=== PATIENT | female | born 1995 | race Caucasian/White ===

== ENCOUNTER 2020-02-17 03:33 | Inpatient (IN) | payer OTHER ==
[~2020-02-17] VITALS: Ht 154.9 cm; Wt 89.2 kg
--- NOTE | 2020-02-17 04:30 | NUR ---
AT BEDSIDE WITH US. PATIENTS RR EVEN UN LABORED NO OBSERVABLE S/S OF ACUTE STRESS AT THIS TIME WILL CONTINUE TO MONITOR
[2020-02-17] MEDS ORDERED: vancomycin/NS 1 GM ADD-VANTAGE 250 ML IV ONE (04:40)
[2020-02-17] MEDS ORDERED: morphine 2 MG/ML inj. syringe IV PRN (04:40)
[2020-02-17] MEDS ORDERED: ESCI5TAB PO (05:14)
[2020-02-17] MEDS ORDERED: CLIN150C2 PO (05:22)
[2020-02-17] MEDS ORDERED: HYDR-3965 PO (05:22)
[2020-02-17 05:37] LABS: BASOPHILS % (AUTO) 0.8 % (0-1); EOSINOPHILS # (AUTO) 0.1 X10'3 (0-0.9); EOSINOPHILS % (AUTO) 2.4 % (0-6); HEMATOCRIT 35.1 % (35.0-45.0); HEMOGLOBIN 11.9 g/dl (12.0-16.0); LYMPHOCYTES # (AUTO) 2.1 X10'3 (1.1-4.8); LYMPHOCYTES % (AUTO) 35.2 % (21-51); MEAN CORPUSCULAR HEMOGLOBIN 31.6 PG (27.0-31.0); MEAN CORPUSCULAR VOLUME 92.9 FL (78-98); MEAN PLATELET VOLUME 7.5 FL (7.4-10.4); MONOCYTES # (AUTO) 0.3 X10'3 (0-0.9); MONOCYTES % (AUTO) 5.4 % (2-12); NEUTROPHILS # (AUTO) 3.3 X10'3 (1.8-7.7); NEUTROPHILS % (AUTO) 56.2 % (42-75); PLATELET COUNT 341 X10'3 (140-440); RED BLOOD COUNT 3.78 X10'6 (4.20-5.60); RED CELL DISTRIBUTION WIDTH 12.7 % (11.5-14.5); WHITE BLOOD COUNT 5.9 X10'3 (4.5-11.0)
[2020-02-17 05:52] LABS: ALANINE AMINOTRANSFERASE 19 U/L (12-78); ALBUMIN 3.7 G/DL (3.4-5.0); ALKALINE PHOSPHATASE 83 IU/L (46-116); ANION GAP 10 (8-16); ASPARTATE AMINO TRANSFERASE 11 U/L (10-37); BILIRUBIN,TOTAL 0.3 MG/DL (0.1-1.0); BLOOD UREA NITROGEN 13 MG/DL (7-18); BUN/CREATININE RATIO 15.1 (6.6-38.0); CALCIUM 9.3 MG/DL (8.5-10.1); CHLORIDE 101 MMOL/L (99-107); CREATININE 0.86 MG/DL (0.40-0.90); GLUCOSE 86 MG/DL (70-104); POTASSIUM 3.2 MMOL/L (3.5-5.1); SODIUM 139 MMOL/L (135-145); TOTAL CARBON DIOXIDE 28.5 MMOL/L (24-32); TOTAL PROTEIN 7.5 G/DL (6.4-8.2); eGFR 80 ML/MIN
[2020-02-17] MEDS ORDERED: ondansetron/PF 4mg/2ml inj IV ONE (05:55)
[2020-02-17 07:22] LABS: HCG SERUM QL NEGATIVE
--- NOTE | 2020-02-17 07:30 | NUR ---
PT RESTING COMFORTABLY, TAKING ON THE PHONE TO HER MOM, HAS NO COMPLAINTS AT THIS TIME, CALL LIGHT IN REACH.
--- NOTE | 2020-02-17 07:36 | NUR ---
PT TO CT.
[2020-02-17] MEDS ORDERED: magnesium 4gm in 100ml NS 100 ML IV PRN (07:40)
[2020-02-17] MEDS ORDERED: potassium Cl 20 mEq SR tablet PO PRN (07:40)
[2020-02-17] MEDS ORDERED: magnesium 2GM in 50ml NS 50 ML IV PRN (07:40)
[2020-02-17] MEDS ORDERED: potassium CL 10mEq/100ml bag 100 ML IV PRN ×2 (07:40)
[2020-02-17] MEDS ORDERED: magnesium Cl slow-release 64mg tablet PO PRN (07:40)
[2020-02-17] MEDS: normal saline 1000ml 1,000 ML IV SCH (07:40)
[2020-02-17] MEDS ORDERED: HYDROcodone/acetaminophen 10/325mg tab PO PRN (07:40)
[2020-02-17] MEDS ORDERED: ondansetron/PF 4mg/2ml inj IV PRN (07:40)
[2020-02-17] MEDS ORDERED: acetaminophen 325mg tablet PO PRN ×2 (07:40)
[2020-02-17] MEDS ORDERED: vancomycin/NS 1 GM ADD-VANTAGE 250 ML IV SCH (08:00)
[2020-02-17] MEDS: K and/or MAG REPLACEMENT MC SCH ×2 (08:00→20:00)
--- NOTE | 2020-02-17 08:22 | NUR ---
TRIED TO CALL REPORT, RECEIVING RN PASSING MEDS, WAITING FOR RN TO CALL BACK.
--- NOTE | 2020-02-17 08:25 | NUR ---
Patient in room ORTHO 4016. I have received report from Bianca in the ED and had the opportunity to ask questions and assume patient care.
[2020-02-17] MEDS: docusate sod 100mg capsule PO SCH ×2 (08:34→20:42)
[2020-02-17] MEDS: potassium Cl 20 mEq SR tablet PO PRN ×3 (08:34→21:11)
[2020-02-17 08:55] VITALS: BP 114/68
--- NOTE | 2020-02-17 09:01 | NUR ---
Pt arrived, alert and oriented X4, tucked in, provided comfort measures
[2020-02-17 10:00] VITALS: BP 98/51
[2020-02-17] MEDS: HYDROcodone/acetaminophen 5mg/325mg tablet PO PRN (11:46)
--- NOTE | 2020-02-17 12:04 | NUR ---
PAGER ID: [phone] MESSAGE: Suzie Mabry on ortho, pt in [id number] Ms. Juliet is requesting med for acid indigestion, please advise, #[id number]
[2020-02-17] MEDS: mag hydrox/Alum hydrox/simeth 30ml oral suspension PO PRN ×2 (12:41→21:13)
[2020-02-17] MEDS: cefepime 1GM/NS ADD-VANTAGE 100 ML IV SCH ×2 (15:00→20:51)
[2020-02-17] MEDS: VANCOmycin 1250MG/NS 250ml Bag 250 ML IV SCH (17:13)
--- NOTE | 2020-02-17 17:57 | NUR ---
Spoke with pt's father with permission from pt. 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 Pt went through 6 months of chemo. Pt's father is Thomas Levichintan
--- NOTE | 2020-02-17 17:57 | NUR ---
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 Just KEITH, thank you
--- NOTE | 2020-02-17 18:00 | NUR ---
RECEIVED REPORT FROM CELIA QUINTERO AND ASSUMED PATIENT CARE
--- NOTE | 2020-02-17 18:16 | NUR ---
Problems reprioritized. Patient report given, questions answered & plan of care reviewed with Mae.
[2020-02-17] MEDS ORDERED: FLU VACC QS2020-21(6MOS UP)/PF 60 MCG/0.5 ML SYRINGE IMVAC ONE (18:20)
[2020-02-17] MEDS: lactobacillus rhamnosus 10,000 MMU CELLS/CAPSULE PO SCH (20:42)
[2020-02-17] MEDS ORDERED: temazepam 15mg capsule PO PRN (21:00)
[2020-02-17 22:00] VITALS: BP 100/74
[2020-02-18] MEDS: VANCOmycin 1250MG/NS 250ml Bag 250 ML IV SCH ×2 (05:10→17:19)
[2020-02-18] MEDS: HYDROcodone/acetaminophen 5mg/325mg tablet PO PRN ×3 (05:10→20:18)
[2020-02-18 06:00] VITALS: BP 99/44
[2020-02-18 06:20] LABS: BASOPHILS % (AUTO) 0.7 % (0-1); EOSINOPHILS # (AUTO) 0.1 X10'3 (0-0.9); EOSINOPHILS % (AUTO) 1.9 % (0-6); HEMATOCRIT 33.2 % (35.0-45.0); HEMOGLOBIN 11.4 g/dl (12.0-16.0); LYMPHOCYTES # (AUTO) 1.3 X10'3 (1.1-4.8); LYMPHOCYTES % (AUTO) 35.1 % (21-51); MEAN CORPUSCULAR HEMOGLOBIN 32.3 PG (27.0-31.0); MEAN CORPUSCULAR HGB CONC 34.3 g/dL (33.0-36.5); MEAN CORPUSCULAR VOLUME 94.4 FL (78-98); MEAN PLATELET VOLUME 7.7 FL (7.4-10.4); MONOCYTES # (AUTO) 0.2 X10'3 (0-0.9); MONOCYTES % (AUTO) 6.4 % (2-12); NEUTROPHILS % (AUTO) 55.9 % (42-75); PLATELET COUNT 248 X10'3 (140-440); RED BLOOD COUNT 3.52 X10'6 (4.20-5.60); RED CELL DISTRIBUTION WIDTH 12.9 % (11.5-14.5); WHITE BLOOD COUNT 3.6 X10'3 (4.5-11.0)
[2020-02-18 06:27] LABS: ALBUMIN 2.9 G/DL (3.4-5.0); ANION GAP 4 (8-16); BLOOD UREA NITROGEN 9 MG/DL (7-18); BUN/CREATININE RATIO 11.8 (6.6-38.0); CALCIUM 8.3 MG/DL (8.5-10.1); CHLORIDE 108 MMOL/L (99-107); CREATININE 0.76 MG/DL (0.40-0.90); GLUCOSE 116 MG/DL (70-104); MAGNESIUM 2.2 MG/DL (1.5-2.4); POTASSIUM 3.9 MMOL/L (3.5-5.1); SODIUM 141 MMOL/L (135-145); TOTAL CARBON DIOXIDE 28.6 MMOL/L (24-32); eGFR > 90 ML/MIN
--- NOTE | 2020-02-18 06:30 | NUR ---
REPORT GIVEN TO SHERITA QUINTERO
[2020-02-18] MEDS: K and/or MAG REPLACEMENT MC SCH ×2 (08:40→20:00)
[2020-02-18] MEDS: docusate sod 100mg capsule PO SCH ×2 (08:45→20:18)
[2020-02-18] MEDS: lactobacillus rhamnosus 10,000 MMU CELLS/CAPSULE PO SCH ×2 (08:45→20:18)
[2020-02-18] MEDS: cefepime 1GM/NS ADD-VANTAGE 100 ML IV SCH ×2 (08:46→20:18)
[2020-02-18 10:00] VITALS: BP 104/58
[2020-02-18] MEDS: ESCITALOPRAM OXALATE 5 MG TABLET PO SCH (17:19)
[2020-02-18] MEDS: normal saline 1000ml 1,000 ML IV SCH (17:22)
[2020-02-18 18:00] VITALS: BP 108/43
--- NOTE | 2020-02-18 18:45 | NUR ---
Patient in room ORTHO 4016. I have received report from Amanda QUINTERO and had the opportunity to ask questions and assume patient care.
[2020-02-18 22:00] VITALS: BP 110/60
[2020-02-19 04:17] LABS: BASOPHILS % (AUTO) 0.8 % (0-1); EOSINOPHILS # (AUTO) 0.1 X10'3 (0-0.9); EOSINOPHILS % (AUTO) 1.8 % (0-6); HEMATOCRIT 34.4 % (35.0-45.0); HEMOGLOBIN 11.6 g/dl (12.0-16.0); LYMPHOCYTES # (AUTO) 1.5 X10'3 (1.1-4.8); LYMPHOCYTES % (AUTO) 37.8 % (21-51); MEAN CORPUSCULAR HEMOGLOBIN 32.2 PG (27.0-31.0); MEAN CORPUSCULAR HGB CONC 33.8 g/dL (33.0-36.5); MEAN CORPUSCULAR VOLUME 95.4 FL (78-98); MEAN PLATELET VOLUME 7.4 FL (7.4-10.4); MONOCYTES # (AUTO) 0.2 X10'3 (0-0.9); MONOCYTES % (AUTO) 4.7 % (2-12); NEUTROPHILS # (AUTO) 2.2 X10'3 (1.8-7.7); NEUTROPHILS % (AUTO) 54.9 % (42-75); PLATELET COUNT 267 X10'3 (140-440); RED BLOOD COUNT 3.61 X10'6 (4.20-5.60); RED CELL DISTRIBUTION WIDTH 12.3 % (11.5-14.5); WHITE BLOOD COUNT 4.1 X10'3 (4.5-11.0)
[2020-02-19] MEDS ORDERED: VANCOMYCIN LEVEL IV ONE (04:30)
[2020-02-19 04:40] LABS: ALBUMIN 3.1 G/DL (3.4-5.0); ANION GAP 8 (8-16); BLOOD UREA NITROGEN 8 MG/DL (7-18); BUN/CREATININE RATIO 11.4 (6.6-38.0); CALCIUM 8.9 MG/DL (8.5-10.1); CHLORIDE 106 MMOL/L (99-107); GLUCOSE 112 MG/DL (70-104); MAGNESIUM 2.2 MG/DL (1.5-2.4); POTASSIUM 3.9 MMOL/L (3.5-5.1); SODIUM 141 MMOL/L (135-145); TOTAL CARBON DIOXIDE 26.8 MMOL/L (24-32); VANCOMYCIN,TROUGH 14.3 UG/ML (6.0-14.0); eGFR > 90 ML/MIN
[2020-02-19] MEDS: VANCOmycin 1250MG/NS 250ml Bag 250 ML IV SCH ×2 (05:00→16:57)
--- NOTE | 2020-02-19 06:24 | NUR ---
Problems reprioritized. Patient report given, questions answered & plan of care reviewed with Jaki QUINTERO.
[2020-02-19 06:33] VITALS: BP 110/59
[2020-02-19] MEDS: lactobacillus rhamnosus 10,000 MMU CELLS/CAPSULE PO SCH ×2 (07:28→21:24)
[2020-02-19] MEDS: ESCITALOPRAM OXALATE 5 MG TABLET PO SCH (07:29)
[2020-02-19] MEDS: docusate sod 100mg capsule PO SCH ×2 (07:29→21:25)
[2020-02-19] MEDS: cefepime 1GM/NS ADD-VANTAGE 100 ML IV SCH (07:29)
[2020-02-19] MEDS: K and/or MAG REPLACEMENT MC SCH ×2 (08:00→19:40)
[2020-02-19 09:51] VITALS: BP 106/58
[2020-02-19 17:00] VITALS: BP 113/70
--- NOTE | 2020-02-19 18:12 | NUR ---
Problems reprioritized. Patient report given, questions answered & plan of care reviewed with Katerina QUINTERO.
[2020-02-19 22:00] VITALS: BP 99/57
[2020-02-19 22:21] LABS: HIV ANTIBODY 1&2 RAPID NON-REACTIVE (Neg)
[2020-02-20] MEDS: HYDROcodone/acetaminophen 5mg/325mg tablet PO PRN (02:40)
[2020-02-20] MEDS ORDERED: VANCOMYCIN LEVEL IV ONE (04:30)
[2020-02-20 05:18] LABS: ALBUMIN 2.8 G/DL (3.4-5.0); ANION GAP 3 (8-16); BLOOD UREA NITROGEN 6 MG/DL (7-18); BUN/CREATININE RATIO 8.1 (6.6-38.0); CALCIUM 8.3 MG/DL (8.5-10.1); CHLORIDE 107 MMOL/L (99-107); CREATININE 0.74 MG/DL (0.40-0.90); GLUCOSE 89 MG/DL (70-104); MAGNESIUM 2.1 MG/DL (1.5-2.4); POTASSIUM 3.6 MMOL/L (3.5-5.1); SODIUM 139 MMOL/L (135-145); TOTAL CARBON DIOXIDE 28.8 MMOL/L (24-32); eGFR > 90 ML/MIN
[2020-02-20 05:29] LABS: BASOPHILS % (AUTO) 0.6 % (0-1); EOSINOPHILS # (AUTO) 0.1 X10'3 (0-0.9); EOSINOPHILS % (AUTO) 2.9 % (0-6); HEMATOCRIT 31.9 % (35.0-45.0); LYMPHOCYTES # (AUTO) 1.6 X10'3 (1.1-4.8); LYMPHOCYTES % (AUTO) 37.8 % (21-51); MEAN CORPUSCULAR HEMOGLOBIN 32.7 PG (27.0-31.0); MEAN CORPUSCULAR HGB CONC 34.6 g/dL (33.0-36.5); MEAN CORPUSCULAR VOLUME 94.5 FL (78-98); MEAN PLATELET VOLUME 7.5 FL (7.4-10.4); MONOCYTES # (AUTO) 0.3 X10'3 (0-0.9); MONOCYTES % (AUTO) 7.4 % (2-12); NEUTROPHILS # (AUTO) 2.1 X10'3 (1.8-7.7); NEUTROPHILS % (AUTO) 51.3 % (42-75); PLATELET COUNT 258 X10'3 (140-440); RED BLOOD COUNT 3.37 X10'6 (4.20-5.60); RED CELL DISTRIBUTION WIDTH 12.4 % (11.5-14.5); WHITE BLOOD COUNT 4.2 X10'3 (4.5-11.0)
[2020-02-20 06:00] VITALS: BP 113/64
--- NOTE | 2020-02-20 06:28 | NUR ---
Problems reprioritized. Patient report given, questions answered & plan of care reviewed with Jaki QUINTERO. Addendum: 02/20/20 at 0628 by Katerina Aguilera RN Amended: Links added.
[2020-02-20] MEDS: K and/or MAG REPLACEMENT MC SCH (08:00)
[2020-02-20] MEDS ORDERED: DOXYCYCLINE 100MG CAPSULE PO SCH (08:30)
[2020-02-20] MEDS: docusate sod 100mg capsule PO SCH (08:53)
[2020-02-20] MEDS: lactobacillus rhamnosus 10,000 MMU CELLS/CAPSULE PO SCH (08:53)
[2020-02-20] MEDS: ESCITALOPRAM OXALATE 5 MG TABLET PO SCH (08:54)
--- NOTE | 2020-02-20 09:42 | NUR ---
PAGER ID: [phone] MESSAGE: [id number]- Carole Chung- Patient wound culture from thigh- positive for MRSA. Jaki [id number]
[2020-02-20 10:13] VITALS: BP 117/65
[2020-02-20] MEDS ORDERED: DOXY-224 PO (14:45)
--- NOTE | 2020-02-20 15:23 | NUR ---
Patient ready for discharge. All belongings sent home with patient. PIV removed, cannula intact. Antibiotic e scripted to pharmacy. Wound care instructions given to patient.
== END 2020-02-20 15:00 | disposition home or self-care (01) | DRG 603 ==
LOC: ER 03:34 → ED HOLD 07:36 → ORTHO 4S 08:46
PROVIDERS: ADMIT Internal Medicine; ATTEND Internal Medicine
DX: L03.115 Cellulitis of right lower limb (principal); L97.119 Non-pressure chronic ulcer of right thigh with unspecified severity; D72.819 Decreased white blood cell count, unspecified; Z87.891 Personal history of nicotine dependence; M60.9 Myositis, unspecified; E87.6 Hypokalemia; F32.9 Major depressive disorder, single episode, unspecified; Z23 Encounter for immunization
CPT/HCPCS: 36415; 73701; 80048; 80053; 80202; 83735; 84703; 85025; 86703; 87070; 87075; 87077; 87081; 87186; 96365; 96375; 99285; G0378; J0692; J2270; J2405; J3370; J7030; Q2039